=== PATIENT | male | born 1955 | race Caucasian/White ===

== ENCOUNTER 2017-09-11 12:03 | Inpatient (IN) | payer MEDICARE, MEDICAID ==
[~2017-09-11] VITALS: Ht 167.6 cm; Wt 75.8 kg
[~2017-09-11 12:03] MED LIST: ASPI-621 PO; ATOR20TA9 PO; CARV6.2512 PO; FURO40TA6 PO; INSU100I11 SQ-INSULIN; INSU100I13 SQ-INSULIN; LISI-167 PO; SPIR25TA PO; TAMS-11 PO; WARF7.5T PO-COUM
[2017-09-11] MEDS ORDERED: SODIUM CHLORIDE FLUSH 10ML SYR IVF ONE (12:30)
[2017-09-11] MEDS: PLEASE ENTER HEIGHT AND WEIGHT MC SCH ×2 (12:30→20:30)
[2017-09-11] MEDS ORDERED: SODIUM CHLORIDE 0.9% 1,000ML IVBOLUS ONE (12:30)
[2017-09-11 12:51] LABS: BASOPHILS # (AUTO) 0.03 x10^3/uL (0-0.1); BASOPHILS % (AUTO) 0 % (0-1); EOSINOPHILS # (AUTO) 0.04 x10^3/uL (0-0.4); EOSINOPHILS % (AUTO) 1 % (1-7); LYMPHOCYTES # (AUTO) 1.14 x10^3/uL (1-3.4); LYMPHOCYTES % (AUTO) 14 % (22-44); MD NO; MEAN CORPUSCULAR HEMOGLOBIN 31.8 pg (27.5-34.5); MEAN CORPUSCULAR HGB CONC 33.9 g/dL (33.2-36.2); MEAN CORPUSCULAR VOLUME 93.6 fL (81-97); MEAN PLATELET VOLUME 7.5 fL (7.4-10.4); MONOCYTES # (AUTO) 0.56 x10^3/uL (0.2-0.8); MONOCYTES % (AUTO) 7 % (2-9); NEUTROPHILS # (AUTO) 6.43 x10^3/uL (1.8-6.8); NEUTROPHILS % (AUTO) 78 % (42-75); PLATELET COUNT 265 x10^3/uL (130-400); RED BLOOD COUNT 4.61 x10^6/uL (4.38-5.82); RED CELL DISTRIBUTION WIDTH 15.6 % (9.4-14.8)
[2017-09-11 12:59] LABS: INTERNATIONAL NORMALIZED RATIO 1.31 (0.93-1.1); PROTHROMBIN TIME 13.6 Seconds (9.6-11.5)
[2017-09-11 13:02] LABS: ALANINE AMINOTRANSFERASE 45 U/L (12-78); ALBUMIN 3.1 g/dL (3.4-5.0); ANION GAP 7 mmol/L (5-15); CALCIUM 9.4 mg/dL (8.5-10.1); CHLORIDE 99 mmol/L (98-107); CREATININE 1.02 mg/dL (0.7-1.3)
[2017-09-11 13:07] LABS: ALKALINE PHOSPHATASE 139 U/L (45-117); BILIRUBIN,TOTAL 3.2 mg/dL (0.2-1.0); TOTAL PROTEIN 7.6 g/dL (6.4-8.2); TROPONIN I 0.052 ng/mL (0.000-0.045)
[2017-09-11] MEDS ORDERED: GUAIFENESIN/DM 200-20MG, 10ML UDC PO PRN (15:30)
[2017-09-11] MEDS ORDERED: LABETALOL 5MG/ML, 20ML IVPush PRN (15:30)
[2017-09-11] MEDS ORDERED: POLYETHYLENE GLYCOL 17 GM PACKET PO PRN (15:30)
[2017-09-11] MEDS ORDERED: ONDANSETRON 2MG/ML, 2ML IVPush PRN (15:30)
[2017-09-11] MEDS ORDERED: ONDANSETRON ODT 4 MG PO PRN (15:30)
[2017-09-11] MEDS ORDERED: MORPHINE SULFATE 4 MG/ML, 1ML ONE (16:03)
[2017-09-11] MEDS: morphine SULFATE 10 MG/ML, 1ML IVPush PRN (16:05)
[2017-09-11] MEDS ORDERED: aspirin PO (16:14)
[2017-09-11] MEDS ORDERED: [UNRECOGNIZED DRUG - OTHER] PO (16:14)
[2017-09-11] MEDS ORDERED: OMEP20CA14 PO (17:24)
[2017-09-11 17:25] VITALS: BP 104/67
[2017-09-11] MEDS ORDERED: WARFARIN 7.5 MG TABLET PO-COUM ONE (18:00)
[2017-09-11] MEDS: CARVEDILOL 6.25 MG TABLET PO SCH (18:11)
[2017-09-11 19:59] LABS: CULTURE INDICATED? YES; MICROSCOPIC INDICATED
[2017-09-11 20:00] VITALS: BP 100/65
[2017-09-11] MEDS: ATORVASTATIN 20 MG TABLET PO SCH (21:24)
[2017-09-11] MEDS: INSULIN GLARGINE 100 UNITS/ML, PEN SQ-INSULIN SCH (22:23)
[2017-09-11] MEDS: INSULIN LISPRO 100 UNITS/ML, PEN SQ-INSULIN SCH (22:24)
[2017-09-12] MEDS: morphine SULFATE 10 MG/ML, 1ML IVPush PRN ×4 (00:33→21:24)
[2017-09-12 02:00] VITALS: BP 116/82
[2017-09-12] MEDS: PLEASE ENTER HEIGHT AND WEIGHT MC SCH (04:30)
[2017-09-12 05:54] LABS: BASOPHILS # (AUTO) 0.03 x10^3/uL (0-0.1); BASOPHILS % (AUTO) 1 % (0-1); EOSINOPHILS # (AUTO) 0.09 x10^3/uL (0-0.4); EOSINOPHILS % (AUTO) 2 % (1-7); LYMPHOCYTES # (AUTO) 2.16 x10^3/uL (1-3.4); LYMPHOCYTES % (AUTO) 35 % (22-44); MD NO; MEAN CORPUSCULAR HEMOGLOBIN 31.7 pg (27.5-34.5); MEAN CORPUSCULAR HGB CONC 33.5 g/dL (33.2-36.2); MEAN CORPUSCULAR VOLUME 94.6 fL (81-97); MEAN PLATELET VOLUME 7.5 fL (7.4-10.4); MONOCYTES # (AUTO) 0.48 x10^3/uL (0.2-0.8); MONOCYTES % (AUTO) 8 % (2-9); NEUTROPHILS # (AUTO) 3.38 x10^3/uL (1.8-6.8); NEUTROPHILS % (AUTO) 55 % (42-75); PLATELET COUNT 243 x10^3/uL (130-400); RED BLOOD COUNT 4.11 x10^6/uL (4.38-5.82); RED CELL DISTRIBUTION WIDTH 15.6 % (9.4-14.8)
[2017-09-12 05:55] LABS: INTERNATIONAL NORMALIZED RATIO 1.33 (0.93-1.1); PROTHROMBIN TIME 13.8 Seconds (9.6-11.5)
[2017-09-12] MEDS: ASPIRIN 81 MG TABLET EC PO SCH (05:57)
[2017-09-12] MEDS: CARVEDILOL 6.25 MG TABLET PO SCH ×2 (05:57→17:12)
[2017-09-12 06:00] LABS: ALBUMIN 2.7 g/dL (3.4-5.0); ANION GAP 8 mmol/L (5-15); CALCIUM 9.1 mg/dL (8.5-10.1); CHLORIDE 100 mmol/L (98-107)
[2017-09-12 06:03] LABS: ALANINE AMINOTRANSFERASE 36 U/L (12-78); ALKALINE PHOSPHATASE 121 U/L (45-117); BILIRUBIN,TOTAL 2.2 mg/dL (0.2-1.0); CREATININE 1.31 mg/dL (0.7-1.3); TOTAL PROTEIN 6.9 g/dL (6.4-8.2)
[2017-09-12 07:21] VITALS: BP 122/88
[2017-09-12] MEDS ORDERED: SODIUM CHLORIDE 0.9% 1,000ML IVBOLUS ONE (08:00)
[2017-09-12] MEDS: LISINOPRIL 10 MG TABLET PO SCH (08:28)
[2017-09-12] MEDS: SPIRONOLACTONE 25 MG TABLET PO SCH (08:28)
[2017-09-12] MEDS: TAMSULOSIN 0.4 MG CAP.ER.24H PO SCH (08:28)
[2017-09-12] MEDS: SENNA/DOCUSATE TABLET PO SCH (08:28)
[2017-09-12] MEDS ORDERED: FUROSEMIDE 40 MG TABLET PO SCH (09:00)
[2017-09-12] MEDS: INSULIN LISPRO 100 UNITS/ML, PEN SQ-INSULIN SCH ×4 (09:10→21:24)
[2017-09-12] MEDS: INSULIN GLARGINE 100 UNITS/ML, PEN SQ-INSULIN SCH ×2 (11:59→21:25)
[2017-09-12 12:09] VITALS: BP 101/67
[2017-09-12] MEDS ORDERED: WARFARIN 7.5 MG TABLET PO-COUM ONE (18:00)
[2017-09-12 20:00] VITALS: BP 99/57
[2017-09-12] MEDS: ATORVASTATIN 20 MG TABLET PO SCH (21:23)
[2017-09-13 01:41] VITALS: BP 115/79
[2017-09-13] MEDS ORDERED: GABAPENTIN 300 MG CAPSULE ONE (03:06)
[2017-09-13] MEDS: GABAPENTIN 300 MG CAPSULE PO SCH ×2 (03:10→21:24)
[2017-09-13 05:16] LABS: BASOPHILS # (AUTO) 0.04 x10^3/uL (0-0.1); BASOPHILS % (AUTO) 1 % (0-1); EOSINOPHILS # (AUTO) 0.09 x10^3/uL (0-0.4); EOSINOPHILS % (AUTO) 1 % (1-7); LYMPHOCYTES # (AUTO) 1.69 x10^3/uL (1-3.4); LYMPHOCYTES % (AUTO) 26 % (22-44); MD NO; MEAN CORPUSCULAR HEMOGLOBIN 31.7 pg (27.5-34.5); MEAN CORPUSCULAR HGB CONC 33.6 g/dL (33.2-36.2); MEAN CORPUSCULAR VOLUME 94.3 fL (81-97); MEAN PLATELET VOLUME 7.3 fL (7.4-10.4); MONOCYTES # (AUTO) 0.56 x10^3/uL (0.2-0.8); MONOCYTES % (AUTO) 9 % (2-9); NEUTROPHILS # (AUTO) 4.18 x10^3/uL (1.8-6.8); NEUTROPHILS % (AUTO) 64 % (42-75); PLATELET COUNT 210 x10^3/uL (130-400); RED BLOOD COUNT 3.89 x10^6/uL (4.38-5.82); RED CELL DISTRIBUTION WIDTH 15.4 % (9.4-14.8)
[2017-09-13 05:25] LABS: INTERNATIONAL NORMALIZED RATIO 2.03 (0.93-1.1); PROTHROMBIN TIME 20.8 Seconds (9.6-11.5)
[2017-09-13 05:33] LABS: CHLORIDE 103 mmol/L (98-107)
[2017-09-13 05:36] LABS: HEMOGLOBIN A1C 8.9 % (4.2-6.3)
[2017-09-13 05:47] LABS: ALANINE AMINOTRANSFERASE 34 U/L (12-78); ALBUMIN 2.7 g/dL (3.4-5.0); ALKALINE PHOSPHATASE 120 U/L (45-117); ANION GAP 7 mmol/L (5-15); BILIRUBIN,TOTAL 1.7 mg/dL (0.2-1.0); CALCIUM 9.1 mg/dL (8.5-10.1); CREATININE 1.02 mg/dL (0.7-1.3); TOTAL PROTEIN 6.7 g/dL (6.4-8.2)
[2017-09-13 06:35] VITALS: BP 118/77
[2017-09-13] MEDS: ASPIRIN 81 MG TABLET EC PO SCH (06:39)
[2017-09-13] MEDS: CARVEDILOL 6.25 MG TABLET PO SCH ×2 (06:40→17:38)
[2017-09-13] MEDS: INSULIN LISPRO 100 UNITS/ML, PEN SQ-INSULIN SCH ×4 (07:00→21:00)
[2017-09-13] MEDS: SENNA/DOCUSATE TABLET PO SCH (09:00)
[2017-09-13] MEDS: SPIRONOLACTONE 25 MG TABLET PO SCH (09:35)
[2017-09-13] MEDS: TAMSULOSIN 0.4 MG CAP.ER.24H PO SCH (09:35)
[2017-09-13] MEDS: LISINOPRIL 10 MG TABLET PO SCH (09:35)
[2017-09-13] MEDS: ACETAMINOPHEN 500 MG TABLET PO PRN ×2 (11:44→21:25)
[2017-09-13] MEDS: INSULIN GLARGINE 100 UNITS/ML, PEN SQ-INSULIN SCH ×2 (12:41→21:27)
[2017-09-13 12:49] VITALS: BP 114/78
[2017-09-13] MEDS ORDERED: WARFARIN 5 MG TABLET PO-COUM ONE (18:00)
[2017-09-13 19:53] VITALS: BP 115/76
[2017-09-13] MEDS: AMOXICILLIN/CLAV 875-125MG TABLET PO SCH (21:00)
[2017-09-13] MEDS: ATORVASTATIN 20 MG TABLET PO SCH (21:24)
[2017-09-13] MEDS: DOXYCYCLINE 100MG TABLET PO SCH (21:24)
[2017-09-14 02:00] VITALS: BP 106/74
[2017-09-14 05:27] LABS: INTERNATIONAL NORMALIZED RATIO 3.25 (0.93-1.1)
[2017-09-14 06:12] VITALS: BP 136/90
[2017-09-14] MEDS: ASPIRIN 81 MG TABLET EC PO SCH (06:13)
[2017-09-14] MEDS: CARVEDILOL 6.25 MG TABLET PO SCH ×2 (06:13→18:39)
[2017-09-14] MEDS: ACETAMINOPHEN 500 MG TABLET PO PRN (06:22)
[2017-09-14] MEDS: INSULIN LISPRO 100 UNITS/ML, PEN SQ-INSULIN SCH ×4 (07:00→20:34)
[2017-09-14 07:57] LABS: BASOPHILS # (AUTO) 0.04 x10^3/uL (0-0.1); BASOPHILS % (AUTO) 1 % (0-1); EOSINOPHILS # (AUTO) 0.09 x10^3/uL (0-0.4); EOSINOPHILS % (AUTO) 2 % (1-7); LYMPHOCYTES # (AUTO) 1.73 x10^3/uL (1-3.4); LYMPHOCYTES % (AUTO) 31 % (22-44); MD NO; MEAN CORPUSCULAR HEMOGLOBIN 30.9 pg (27.5-34.5); MEAN CORPUSCULAR HGB CONC 32.7 g/dL (33.2-36.2); MEAN CORPUSCULAR VOLUME 94.3 fL (81-97); MONOCYTES # (AUTO) 0.44 x10^3/uL (0.2-0.8); MONOCYTES % (AUTO) 8 % (2-9); NEUTROPHILS # (AUTO) 3.33 x10^3/uL (1.8-6.8); NEUTROPHILS % (AUTO) 59 % (42-75); PLATELET COUNT 200 x10^3/uL (130-400); RED BLOOD COUNT 3.96 x10^6/uL (4.38-5.82); RED CELL DISTRIBUTION WIDTH 16.3 % (9.4-14.8)
[2017-09-14 08:00] LABS: ANION GAP 8 mmol/L (5-15); CALCIUM 8.8 mg/dL (8.5-10.1); CHLORIDE 100 mmol/L (98-107); CREATININE 1.47 mg/dL (0.7-1.3)
[2017-09-14] MEDS: TAMSULOSIN 0.4 MG CAP.ER.24H PO SCH (08:16)
[2017-09-14] MEDS: DOXYCYCLINE 100MG TABLET PO SCH ×2 (08:16→21:01)
[2017-09-14] MEDS: SPIRONOLACTONE 25 MG TABLET PO SCH (08:16)
[2017-09-14] MEDS: LISINOPRIL 10 MG TABLET PO SCH (08:16)
[2017-09-14] MEDS: AMOXICILLIN/CLAV 875-125MG TABLET PO SCH ×2 (08:17→21:00)
[2017-09-14] MEDS: INSULIN GLARGINE 100 UNITS/ML, PEN SQ-INSULIN SCH ×2 (08:19→20:34)
[2017-09-14] MEDS: SENNA/DOCUSATE TABLET PO SCH (08:19)
[2017-09-14 09:05] VITALS: BP 118/74
[2017-09-14] MEDS: SODIUM CHLORIDE 0.9% 500 ML IV SCH ×3 (10:00→11:41)
[2017-09-14] MEDS ORDERED: SODIUM CHLORIDE 0.9% 1,000 ML IV SCH (10:00)
[2017-09-14 13:20] VITALS: BP 122/82
[2017-09-14 14:34] VITALS: BP 122/82
[2017-09-14 14:45] LABS: ANION GAP 7 mmol/L (5-15); CALCIUM 9.1 mg/dL (8.5-10.1); CHLORIDE 101 mmol/L (98-107); CREATININE 1.14 mg/dL (0.7-1.3)
[2017-09-14] MEDS: WARFARIN 3 MG TABLET PO-COUM SCH ×2 (18:00→18:41)
[2017-09-14 20:00] VITALS: BP 132/69
[2017-09-14] MEDS: ATORVASTATIN 20 MG TABLET PO SCH (21:01)
[2017-09-14] MEDS: GABAPENTIN 300 MG CAPSULE PO SCH (21:01)
[2017-09-14] MEDS ORDERED: morphine SULFATE 10 MG/ML, 1ML IVPush ONE (22:30)
[2017-09-15 02:00] VITALS: BP 122/83
[2017-09-15 05:23] LABS: BASOPHILS # (AUTO) 0.03 x10^3/uL (0-0.1); BASOPHILS % (AUTO) 1 % (0-1); EOSINOPHILS % (AUTO) 2 % (1-7); LYMPHOCYTES # (AUTO) 2.04 x10^3/uL (1-3.4); LYMPHOCYTES % (AUTO) 33 % (22-44); MD NO; MEAN CORPUSCULAR HEMOGLOBIN 31.6 pg (27.5-34.5); MEAN CORPUSCULAR HGB CONC 33.7 g/dL (33.2-36.2); MEAN CORPUSCULAR VOLUME 93.7 fL (81-97); MEAN PLATELET VOLUME 7.5 fL (7.4-10.4); MONOCYTES # (AUTO) 0.44 x10^3/uL (0.2-0.8); MONOCYTES % (AUTO) 7 % (2-9); NEUTROPHILS # (AUTO) 3.64 x10^3/uL (1.8-6.8); NEUTROPHILS % (AUTO) 58 % (42-75); PLATELET COUNT 182 x10^3/uL (130-400); RED BLOOD COUNT 4.12 x10^6/uL (4.38-5.82); RED CELL DISTRIBUTION WIDTH 16.5 % (9.4-14.8)
[2017-09-15 05:25] LABS: INTERNATIONAL NORMALIZED RATIO 2.83 (0.93-1.1); PROTHROMBIN TIME 28.8 Seconds (9.6-11.5)
[2017-09-15 05:30] LABS: ANION GAP 7 mmol/L (5-15); CALCIUM 9.3 mg/dL (8.5-10.1); CHLORIDE 103 mmol/L (98-107); CREATININE 0.93 mg/dL (0.7-1.3)
[2017-09-15 05:51] VITALS: BP 125/88
[2017-09-15] MEDS: CARVEDILOL 6.25 MG TABLET PO SCH (05:52)
[2017-09-15] MEDS: ASPIRIN 81 MG TABLET EC PO SCH (05:52)
[2017-09-15] MEDS: INSULIN LISPRO 100 UNITS/ML, PEN SQ-INSULIN SCH (07:00)
[2017-09-15 07:24] VITALS: BP 127/89
[2017-09-15] MEDS ORDERED: AMOX1TAB12 PO (08:14)
[2017-09-15] MEDS ORDERED: SPIR25TA PO (08:14)
[2017-09-15] MEDS ORDERED: DOXY100T PO (08:14)
[2017-09-15] MEDS ORDERED: ATOR20TA9 PO (08:14)
[2017-09-15] MEDS ORDERED: ASPI-621 PO (08:14)
[2017-09-15] MEDS: TAMSULOSIN 0.4 MG CAP.ER.24H PO SCH (08:47)
[2017-09-15] MEDS: LISINOPRIL 10 MG TABLET PO SCH (08:48)
[2017-09-15] MEDS: SPIRONOLACTONE 25 MG TABLET PO SCH (08:48)
[2017-09-15] MEDS: AMOXICILLIN/CLAV 875-125MG TABLET PO SCH (08:49)
[2017-09-15] MEDS: DOXYCYCLINE 100MG TABLET PO SCH (09:00)
[2017-09-15] MEDS: SENNA/DOCUSATE TABLET PO SCH (09:00)
[2017-09-15] MEDS: INSULIN GLARGINE 100 UNITS/ML, PEN SQ-INSULIN SCH (09:00)
[2017-09-15] MEDS ORDERED: WARFARIN 5 MG TABLET PO-COUM SCH (18:00)
== END 2017-09-15 12:15 | DRG 640 ==
LOC: ED 13:01 → EDIP 14:58 → 4WST 17:08
PROVIDERS: ADMIT Internal Medicine; ATTEND Internal Medicine
DX: R62.7 Adult failure to thrive (principal); N17.0 Acute kidney failure with tubular necrosis; D68.59 Other primary thrombophilia; D69.6 Thrombocytopenia, unspecified; E11.51 Type 2 diabetes mellitus with diabetic peripheral angiopathy without gangrene; E11.65 Type 2 diabetes mellitus with hyperglycemia; R65.10 Systemic inflammatory response syndrome (SIRS) of non-infectious origin without acute organ dysfunction; E44.1 Mild protein-calorie malnutrition; E87.2 Acidosis; R17 Unspecified jaundice; L03.116 Cellulitis of left lower limb; I50.22 Chronic systolic (congestive) heart failure; I11.0 Hypertensive heart disease with heart failure; I44.7 Left bundle-branch block, unspecified; I25.10 Atherosclerotic heart disease of native coronary artery without angina pectoris; F17.200 Nicotine dependence, unspecified, uncomplicated; Z79.4 Long term (current) use of insulin; Z66 Do not resuscitate; J44.9 Chronic obstructive pulmonary disease, unspecified; R74.8 Abnormal levels of other serum enzymes; B19.20 Unspecified viral hepatitis C without hepatic coma; D64.9 Anemia, unspecified; F10.10 Alcohol abuse, uncomplicated; I25.2 Old myocardial infarction; Z59.0 Homelessness; Z95.1 Presence of aortocoronary bypass graft; Z95.810 Presence of automatic (implantable) cardiac defibrillator; Z79.899 Other long term (current) drug therapy; Z79.82 Long term (current) use of aspirin; Z68.27 Body mass index [BMI] 27.0-27.9, adult
CPT/HCPCS: 36415; 71045; 80048; 80053; 81001; 82040; 82962; 83036; 83605; 83735; 84100; 84145; 84439; 84484; 85025; 85610; 85730; 87040; 87086; 93005; 99285; 29580-GP; J1815; J2270; J7030; J7040